=== PATIENT | male | born 1955 ===

== ENCOUNTER → 2017-08-14 | Outpatient (CLI) | payer MEDICARE, OTHER | LOC: LAB 09:41 | DX: L30.9 Dermatitis, unspecified (principal) | CPT/HCPCS: 88312 ==

== ENCOUNTER → 2017-08-14 | Outpatient (CLI) | payer MEDICARE, OTHER | LOC: LAB SHORT → PLD | DX: L30.9 Dermatitis, unspecified (principal) | CPT/HCPCS: 88312 ==

== ENCOUNTER → 2018-03-28 | Outpatient (CLI) | payer MEDICARE, OTHER ==
[2018-03-28 13:03] LABS: Microalb/Creat Ratio UR, Rand 9.573 mg/g (0.000-30.000); Microalbumin, Random Urine 15.7 mg/L (0.000-20.000)
== END | disposition home or self-care (01) ==
LOC: LAB SHORT 09:00 → LAB 09:00
PROVIDERS: Internal Medicine
DX: Z11.59 Encounter for screening for other viral diseases (principal); Z12.5 Encounter for screening for malignant neoplasm of prostate; I10 Essential (primary) hypertension; G60.9 Hereditary and idiopathic neuropathy, unspecified; E11.8 Type 2 diabetes mellitus with unspecified complications; E78.5 Hyperlipidemia, unspecified
CPT/HCPCS: 82043; 82570